=== PATIENT | female | born 1990 | race Caucasian/White ===

== ENCOUNTER 2016-09-11 18:29 | Emergency (ER) | payer SELFPAY ==
[2016-09-11 18:31] VITALS: BP 119/72; PULSE 87; RESP 13; TEMP 98.4; O2SAT 100
--- NOTE | 2016-09-11 20:58 | PD ---
HPI Chief Complaint: Musculoskeletal Complaint Time Seen by Provider: 20:55 Travel History International Travel<30 days: No Contact w/Intl Traveler<30days: No Traveled to known affect area: No History of Present Illness HPI Patient comes in for evaluation of right knee pain after falling through a wood patio earlier today. Patient describes pain is burning like in bilateral aspects of her right knee medial aspect greater than lateral. Pain radiates proximally and distally. Pain is worse with standing, walking, and palpation. Patient denies doing anything for this other than using rubbing alcohol to clean abrasion. Patient reports her tetanus shot is not up-to-date. [facility] Past Medical History Medical History: Denies Significant Hx Diminished Hearing: No ?: Unknown LMP: 08/28/16 Past Surgical History Surgical History: No Previous Surgery Social History Alcohol Use: No Tobacco Use: No Substance Use: No Allergies-Medications (Allergen,Severity, Reaction): Coded Allergies: No Known Allergies (Unverified , 09/11/16) Reported Meds & Prescriptions Reported Meds & Active Scripts Active No Active Prescriptions or Reported Medications Review of Systems Except as stated in HPI: all other systems reviewed are Neg Physical Exam Narrative GENERAL: Well-developed, overly nourished, in no acute distress, and non-ill appearing. SKIN: Superficial abrasion noted over right anterior proximal lynn the patient reports some fall today. HEAD: Atraumatic. Normocephalic. EYES: Pupils equal and round. EOMI. No scleral icterus. No injection or drainage. ENT: No nasal bleeding or discharge. Mucous membranes pink and moist. NECK: Trachea midline.Supple. No nuclear rigidity. CARDIOVASCULAR: Radial pulses 2+, intact, and equal bilaterally. Capillary refill less than 2 seconds. RESPIRATORY: No accessory muscle use. No respiratory distress. MUSCULOSKELETAL: No obvious deformities. No clubbing. No cyanosis. No edema. Full range of motion. Knee: Negative patellar apprehension, varus and valgus maneuvers, anterior draw test, and Kimberly test. Pulses equal BL distal to injury. Capillary refill less than 2 seconds distal to injury and equal BL. FROM distal to injury and equal BL. Strength distal to injury equal BL. NV intact distal to injury. Dorsal pulses equal BL. Sensation equal BL 1st web space. Patient reports sinus palpation bilateral aspects of right knee right greater than left. There is no crepitus. NEUROLOGICAL: Awake and alert. No obvious cranial nerve deficits. Motor grossly within normal limits. Normal speech. PSYCHIATRIC: Appropriate mood and affect; insight and judgment normal. Data Data Last Documented VS Vital Signs Date Time Temp Pulse Resp B/P Pulse Ox O2 Delivery O2 Flow Rate FiO2 09/11/16 18:31 98.4 87 13 119/72 100 Orders Wound Care (09/11/16 20:54) Tetanus/Diphtheria Tox Adult (Tetanus/Di (09/11/16 21:00) Knee, Complete (4vws) (09/11/16 ) Splint Or Brace Apply/Monitor (09/11/16 21:40) Immobilizer Knee 20 Inch (09/11/16 ) [facility] Medical Decision Making Medical Screen Exam Complete: Yes Emergency Medical Condition: Yes Interpretation(s) Right knee x-ray by the radiologist shows: Unremarkable study. Differential Diagnosis Fracture, sprain, contusion, abrasion, laceration, other Narrative Course There is no clinical evidence to suspect bony injury by exam. Radiographic examination revealed no fracture seen at this time. No obvious ligamental injury or obvious internal derangement is noted at this time. The anterior, posterior, lateral and medial collateral ligaments are intact and symmetrical. The distal extremity appears neurovascularly intact, without evidence of neurovascular injury nor compartment syndrome. Tendon exam also was intact. The effected limb was immobilized. The patient was discharged with sprain and splint care instructions and given warnings for vascular compromise. The patient is to follow up with PCP and/or Orthopedics. The patient agrees with plan. The patient suffered abrasion. The abrasion is very superficial and non- repairable. There was no evidence to suggest foreign bodies. Visual and tactile exams were unremarkable. There was no evidence of neurovascular injury as well. The patients wound was cleaned and dressed. The patient was given signs and symptom warnings for infection, such as increasing pain, redness, swelling, associated heat, pus or fever. The patient was given instructions for timely follow up. The patient agreed with plan of care. Patient in no obvious distress upon re-evaluation. All pertinent Radiology result(s) discussed with patient. Any questions/concerns in reference to patient diagnosis/condition discussed and clarified prior to patient's discharge. Reinforced sheer importance of close follow up with patient's primary physician or primary care clinic. Instructed patient to return to ED immediately, if symptoms return/worsen. Pt showed understanding of above instructions. Further instructions and recommendations were detailed in discharge paperwork. Pt ambulated without difficulty out of ED at discharge in knee immobilizer. Diagnosis Primary Impression: Right knee sprain Qualified Code: S83.91XA - Sprain of right knee, unspecified ligament, initial encounter Additional Impression: Abrasion Referrals: Leonidas Pool MD [facility] Medicine Patient Instructions: Abrasion (ED), General Instructions, Knee Immobilizer (DC ), Knee Sprain (ED) Departure Forms: Work Release Enter return to work date: Sep 14, 2016 Additional Instructions: Follow-up with your primary care physician and/or orthopedic in 3-5 days for reevaluation. Use [id number] Tylenol and/or ibuprofen as needed for pain. Follow instructions on the packaging. Place ice on affected area 20 minutes prior as needed for pain. Keep wound dry and clean as possible using soap and water. Use Neosporin to promote healing. Return to the emergency department if symptoms get worse. Scripts No Active Prescriptions or Reported Meds Disposition: 01 DISCHARGE HOME Condition: Stable Leobardo Forde Sep 11, 2016 20:58
[2016-09-11] MEDS ORDERED: TETANUS/DIPHTHERIA TOXOID ADULT 0.5 ML VIAL IM ONE (21:00)
--- NOTE | 2016-09-11 21:27 | RADRPT ---
EXAM DATE/TIME: 09/11/2016 21:11 [place] COMPARISON: No previous studies available for comparison. INDICATIONS : Fell at home through porch. knee pain. MEDICAL HISTORY : None. SURGICAL HISTORY : None. ENCOUNTER: Initial ACUITY: 1 day PAIN SCORE: 8/10 LOCATION: Right medial FINDINGS: No definite fractures, or dislocations are identified. No definite lytic or sclerotic lesion is seen . The joint spaces are well maintained. CONCLUSION: Unremarkable study. Lul White MD on September 11, 2016 at 21:25 Board Certified Radiologist. This report was verified electronically.
== END 2016-09-11 22:07 | disposition home or self-care (01) ==
LOC: NEPD 18:29
DX: S83.91XA Sprain of unspecified site of right knee, initial encounter (principal); S80.811A Abrasion, right lower leg, initial encounter; W13.3XXA Fall through floor, initial encounter; Z23 Encounter for immunization
CPT/HCPCS: 73564; 90471; 90714; 96372; 99283; L1830